=== PATIENT | male | born 1960 | race Caucasian/White ===

== ENCOUNTER 2018-10-28 00:24 | Inpatient (IN) ==
[2018-10-28] MEDS: DOBUTamine 500 MG/250 ML PREMIX IV PRN ×2 (01:50→14:38)
[2018-10-28] MEDS ORDERED: BISACODYL 5 MG TABLET PO PRN (02:48)
[2018-10-28] MEDS ORDERED: ACETAMINOPHEN 500 MG TABLET PO PRN (02:48)
[2018-10-28 06:00] LABS: Basophils % 0.5 % (0.0-0.8); Eosinophils # 0.1 10*3/uL (0.0-0.87); Eosinophils % 0.9 % (0.00-10.9); Hematocrit 30.3 VOL% (42.0-52.0); Hemoglobin 9.8 GM/DL (14.0-18.0); Immature Granulocytes % 0.5 %; Immature Granulocytes Absolute 0.04 #; Lymphocytes # 0.6 10*3/uL (1.4-4.0); Lymphocytes % 7.2 % (21.2-54.2); Mean Corpuscular HGB Conc 32.3 GM/DL (32-36); Mean Corpuscular Volume 93.5 FL (87-102); Mean Platelet Volume 10.9 FL (9.6-12.0); Monocytes % 7.9 % (1.7-12.7); Platelet Count 184 T/CUMM (130-400); Red Blood Count 3.24 MC/CUMM (3.8-5.5); Red Cell Distribution Width 14.3 % (9.3-17.3); White Blood Count 7.6 T/CUMM (4-12)
[2018-10-28 06:45] LABS: Albumin 2.9 G/DL (3.4-5.0); Calcium 8.4 MG/DL (8.5-10.1); Osmolality,Calculated 276.8 MOS/KG (273-304); Total Protein 7.3 G/DL (6.4-8.3)
[2018-10-28] MEDS: PANTOPRAZOLE 40 MG TABLET PO SCH (08:33)
[2018-10-28] MEDS: FERROUS SULFATE 325 MG TABLET PO SCH (08:33)
[2018-10-28] MEDS: ENOXAPARIN 30 MG/0.3 ML SYRINGE SUBCUT SCH (08:33)
[2018-10-28] MEDS: CALCIUM CARBONATE CHEW 500 MG TABLET PO SCH ×3 (08:40→17:18)
[2018-10-28] MEDS ORDERED: ASPIRIN EC 81 MG TABLET PO SCH (09:00)
[2018-10-28] MEDS ORDERED: traMADol 50 MG TABLET PO PRN (10:35)
[2018-10-28] MEDS: SODIUM CHLORIDE 0.9% 1,000 ML IV SCH (12:00)
[2018-10-28] MEDS ORDERED: POTASSIUM CHLORIDE RIDER 10 MEQ in PREMIX 1 EACH IV PRN (12:06)
[2018-10-28] MEDS ORDERED: MAGNESIUM SULF RIDER 2 GM in PREMIX 1 EACH IV PRN (12:06)
[2018-10-28] MEDS: ONDANSETRON 4 MG/2 ML VIAL IV PRN ×2 (13:38→22:59)
[2018-10-28] MEDS ORDERED: HYDROmorphone 2 MG/1 ML VIAL IV ONE (14:15)
[2018-10-28] MEDS ORDERED: AMIODARONE INJ 150 MG in DEXTROSE 5% 100 ML IV ONE (23:23)
[2018-10-28] MEDS ORDERED: AMIODARONE 150 MG/3 ML VIAL ONE (23:26)
[2018-10-28] MEDS ORDERED: SODIUM CHLORIDE 0.9% 1,000 ML IV SCH (23:30)
[2018-10-28] MEDS ORDERED: AMIODARONE INJ 450 MG in DEXTROSE 5% 241 ML IV SCH (23:30)
[2018-10-28] MEDS ORDERED: SODIUM CHLORIDE 0.9% 500 ML IV ONE (23:40)
[2018-10-28 23:49] LABS: ABG Base Excess -0.1 MMOL/L (-2.5-2.5); ABG HCO3 23.3 MMOL/L (20-26); ABG PCO2 45.1 MM HG (35-48); ABG TCO2 23.9 MMOL/L (23-27); Allen Test Positive
[2018-10-28 23:51] LABS: ABG PO2 21.1 MM HG (80-95)
[2018-10-29 00:15] LABS: ABG Base Excess -2.9 MMOL/L (-2.5-2.5); ABG HCO3 19.8 MMOL/L (20-26); ABG Oxygen Saturation 99.4 % (95-100); ABG PCO2 27.6 MM HG (35-48); ABG PH 7.474 (7.35-7.45); ABG TCO2 20.7 MMOL/L (23-27)
[2018-10-29] MEDS: CLORAZEPATE 3.75 MG TABLET PO PRN (01:53)
[2018-10-29] MEDS: SODIUM CHLORIDE 0.9% 1,000 ML IV SCH (02:30)
[2018-10-29 04:44] LABS: Basophils % 0.3 % (0.0-0.8); Hematocrit 30.3 VOL% (42.0-52.0); Hemoglobin 9.7 GM/DL (14.0-18.0); Immature Granulocytes % 0.6 %; Immature Granulocytes Absolute 0.05 #; Lymphocytes # 0.2 10*3/uL (1.4-4.0); Lymphocytes % 3.1 % (21.2-54.2); Mean Corpuscular Volume 94.4 FL (87-102); Mean Platelet Volume 11.5 FL (9.6-12.0); Monocytes % 5.6 % (1.7-12.7); Neutrophils % 90.4 % (38.7-73.9); Platelet Count 183 T/CUMM (130-400); Red Blood Count 3.21 MC/CUMM (3.8-5.5); Red Cell Distribution Width 14.5 % (9.3-17.3); White Blood Count 7.7 T/CUMM (4-12)
[2018-10-29 04:58] LABS: Calcium 8.5 MG/DL (8.5-10.1); Osmolality,Calculated 271.8 MOS/KG (273-304)
[2018-10-29 05:22] LABS: Lymphocytes 4 % (20-55); Platelet Estimate Adequate; Segmented Neutrophils 93 % (50-85); Total Cells Counted 100
[2018-10-29 05:23] LABS: Hypochromasia 1+
[2018-10-29] MEDS: ONDANSETRON 4 MG/2 ML VIAL IV PRN ×2 (07:07→20:42)
[2018-10-29] MEDS ORDERED: DIAZEPAM 5 MG TABLET PO ONE (08:30)
[2018-10-29] MEDS ORDERED: diphenhydrAMINE CAP 25 MG CAPSULE PO ONE (08:30)
[2018-10-29] MEDS ORDERED: AMIODARONE 450 MG/9 ML VIAL IV ONE (08:42)
[2018-10-29] MEDS ORDERED: LIDOCAINE 1% 20 ML VIAL ONE (08:45)
[2018-10-29] MEDS ORDERED: MIDAZOLAM 2 MG/2 ML VIAL ONE (09:01)
[2018-10-29] MEDS ORDERED: HEPARIN/NACL 0.9% 2 UNITS/ML 500 ML IV ONE (09:01)
[2018-10-29] MEDS ORDERED: HYDROmorphone 2 MG/1 ML VIAL ONE (09:01)
[2018-10-29] MEDS: ENOXAPARIN 30 MG/0.3 ML SYRINGE SUBCUT SCH (11:42)
[2018-10-29] MEDS: CALCIUM CARBONATE CHEW 500 MG TABLET PO SCH ×3 (12:43→17:55)
[2018-10-29] MEDS: LEVOTHYROXINE 50 MCG TABLET PO SCH (12:44)
[2018-10-29] MEDS: FERROUS SULFATE 325 MG TABLET PO SCH (12:44)
[2018-10-29] MEDS: PANTOPRAZOLE 40 MG TABLET PO SCH (12:44)
[2018-10-29] MEDS: HYDROmorphone 2 MG/1 ML VIAL IV PRN (20:40)
[2018-10-30 04:35] LABS: Basophils % 0.5 % (0.0-0.8); Eosinophils # 0.1 10*3/uL (0.0-0.87); Hematocrit 30.5 VOL% (42.0-52.0); Immature Granulocytes % 0.6 %; Immature Granulocytes Absolute 0.04 #; Lymphocytes # 0.5 10*3/uL (1.4-4.0); Lymphocytes % 7.8 % (21.2-54.2); Mean Corpuscular HGB Conc 32.8 GM/DL (32-36); Mean Corpuscular Volume 92.7 FL (87-102); Mean Platelet Volume 10.6 FL (9.6-12.0); Monocytes % 7.5 % (1.7-12.7); Neutrophils % 82.6 % (38.7-73.9); Platelet Count 187 T/CUMM (130-400); Red Blood Count 3.29 MC/CUMM (3.8-5.5); Red Cell Distribution Width 14.5 % (9.3-17.3); White Blood Count 6.2 T/CUMM (4-12)
[2018-10-30 05:00] LABS: Osmolality,Calculated 273.7 MOS/KG (273-304)
[2018-10-30 05:05] LABS: Albumin 2.4 G/DL (3.4-5.0); Bilirubin,Total 0.9 MG/DL (0.2-1.0); Calcium 8.1 MG/DL (8.5-10.1); Osmolality,Calculated 276.5 MOS/KG (273-304); Total Protein 6.1 G/DL (6.4-8.3)
[2018-10-30] MEDS: ENOXAPARIN 30 MG/0.3 ML SYRINGE SUBCUT SCH ×2 (08:09→09:50)
[2018-10-30] MEDS: CALCIUM CARBONATE CHEW 500 MG TABLET PO SCH ×3 (08:09→18:53)
[2018-10-30] MEDS: LEVOTHYROXINE 50 MCG TABLET PO SCH (08:09)
[2018-10-30] MEDS: CARVEDILOL 3.125 MG TABLET PO SCH ×2 (09:50→20:53)
[2018-10-30] MEDS: FERROUS SULFATE 325 MG TABLET PO SCH (09:50)
[2018-10-30] MEDS: PANTOPRAZOLE 40 MG TABLET PO SCH (09:50)
[2018-10-30] MEDS: HYDROmorphone 2 MG/1 ML VIAL IV PRN (20:04)
[2018-10-30] MEDS: CLORAZEPATE 3.75 MG TABLET PO PRN (20:53)
[2018-10-31] MEDS: HYDROmorphone 2 MG/1 ML VIAL IV PRN ×4 (02:07→20:13)
[2018-10-31 05:21] LABS: Basophils % 0.5 % (0.0-0.8); Eosinophils # 0.1 10*3/uL (0.0-0.87); Eosinophils % 1.8 % (0.00-10.9); Hematocrit 31.2 VOL% (42.0-52.0); Immature Granulocytes % 0.7 %; Immature Granulocytes Absolute 0.04 #; Lymphocytes # 0.4 10*3/uL (1.4-4.0); Mean Corpuscular HGB Conc 32.1 GM/DL (32-36); Mean Corpuscular Volume 93.1 FL (87-102); Mean Platelet Volume 9.9 FL (9.6-12.0); Monocytes % 8.5 % (1.7-12.7); Neutrophils % 80.5 % (38.7-73.9); Platelet Count 174 T/CUMM (130-400); Red Blood Count 3.35 MC/CUMM (3.8-5.5); Red Cell Distribution Width 14.4 % (9.3-17.3); White Blood Count 5.5 T/CUMM (4-12)
[2018-10-31 05:37] LABS: Calcium 7.9 MG/DL (8.5-10.1); Osmolality,Calculated 277.1 MOS/KG (273-304)
[2018-10-31] MEDS: LEVOTHYROXINE 50 MCG TABLET PO SCH (06:30)
[2018-10-31 07:37] LABS: Albumin 2.3 G/DL (3.4-5.0); Bilirubin,Direct 0.47 MG/DL (0.0-0.20); Bilirubin,Indirect 0.3 MG/DL (0.0-1.0); Bilirubin,Total 0.8 MG/DL (0.2-1.0)
[2018-10-31] MEDS: ENOXAPARIN 30 MG/0.3 ML SYRINGE SUBCUT SCH (08:17)
[2018-10-31] MEDS: CALCIUM CARBONATE CHEW 500 MG TABLET PO SCH ×3 (08:18→17:13)
[2018-10-31] MEDS: PANTOPRAZOLE 40 MG TABLET PO SCH (08:18)
[2018-10-31] MEDS: FERROUS SULFATE 325 MG TABLET PO SCH (08:18)
[2018-10-31] MEDS: CARVEDILOL 3.125 MG TABLET PO SCH ×2 (08:18→20:13)
[2018-10-31] MEDS: CLORAZEPATE 3.75 MG TABLET PO PRN (20:13)
[2018-11-01] MEDS: HYDROmorphone 2 MG/1 ML VIAL IV PRN ×4 (02:27→21:07)
[2018-11-01 05:08] LABS: Basophils % 0.7 % (0.0-0.8); Eosinophils # 0.2 10*3/uL (0.0-0.87); Eosinophils % 3.6 % (0.00-10.9); Hemoglobin 9.9 GM/DL (14.0-18.0); Immature Granulocytes % 0.9 %; Immature Granulocytes Absolute 0.04 #; Lymphocytes # 0.6 10*3/uL (1.4-4.0); Lymphocytes % 12.5 % (21.2-54.2); Mean Corpuscular HGB Conc 31.9 GM/DL (32-36); Mean Corpuscular Volume 93.7 FL (87-102); Mean Platelet Volume 9.9 FL (9.6-12.0); Neutrophils % 69.3 % (38.7-73.9); Platelet Count 170 T/CUMM (130-400); Red Blood Count 3.31 MC/CUMM (3.8-5.5); Red Cell Distribution Width 14.6 % (9.3-17.3); White Blood Count 4.4 T/CUMM (4-12)
[2018-11-01 05:55] LABS: Calcium 7.8 MG/DL (8.5-10.1); Osmolality,Calculated 274.5 MOS/KG (273-304)
[2018-11-01] MEDS: LEVOTHYROXINE 50 MCG TABLET PO SCH (06:10)
[2018-11-01] MEDS: CALCIUM CARBONATE CHEW 500 MG TABLET PO SCH ×3 (08:08→17:58)
[2018-11-01] MEDS: ENOXAPARIN 30 MG/0.3 ML SYRINGE SUBCUT SCH (08:09)
[2018-11-01] MEDS: PANTOPRAZOLE 40 MG TABLET PO SCH (12:59)
[2018-11-01] MEDS: CARVEDILOL 3.125 MG TABLET PO SCH ×2 (12:59→21:07)
[2018-11-01] MEDS: FERROUS SULFATE 325 MG TABLET PO SCH (12:59)
[2018-11-01 18:25] LABS: Apearance,Urine CLOUDY (Clear); Bacteria,Urine Occasional /HPF (Few); Bilirubin,Urine Negative (Negative); Blood, Urine Moderate mg/dL (Negative); Glucose,Urine (UA) Negative (Negative); Ketones,Urine Negative (Negative); Mucus,Urine Occasional /LPF (Occasional); Nitrite,Urine Negative (Negative); Protein,Urine 100 MG/DL; RBC,Urine 3 /HPF (0-4); Squamous Epithelial Cell,Urine Occasional /HPF (0-10); Urine Color Amber (Yellow); Urine Specific Gravity 1.017 (1.001-1.035); Urine Urobilinogen < 2.0 EU/DL (0.2-1.0); WBC,Urine 6 /HPF (0-6)
[2018-11-01] MEDS ORDERED: DILTIAZEM 25 MG/5 ML VIAL IV ONE (20:48)
[2018-11-01] MEDS ORDERED: SODIUM CHLORIDE 0.9% 500 ML IV ONE (20:50)
[2018-11-01] MEDS: CLORAZEPATE 3.75 MG TABLET PO PRN (21:07)
[2018-11-01] MEDS: dilTIAZem Drip 125 MG/125 ML PREMIX IV SCH (21:22)
[2018-11-02] MEDS: HYDROmorphone 2 MG/1 ML VIAL IV PRN ×3 (04:58→21:10)
[2018-11-02 05:02] LABS: Basophils % 1.1 % (0.0-0.8); Eosinophils # 0.2 10*3/uL (0.0-0.87); Eosinophils % 4.2 % (0.00-10.9); Hematocrit 28.8 VOL% (42.0-52.0); Hemoglobin 9.4 GM/DL (14.0-18.0); Immature Granulocytes % 0.6 %; Immature Granulocytes Absolute 0.02 #; Lymphocytes # 0.4 10*3/uL (1.4-4.0); Lymphocytes % 11.7 % (21.2-54.2); Mean Corpuscular HGB Conc 32.6 GM/DL (32-36); Mean Corpuscular Volume 92.9 FL (87-102); Mean Platelet Volume 9.9 FL (9.6-12.0); Monocytes % 18.6 % (1.7-12.7); Neutrophils % 63.8 % (38.7-73.9); Platelet Count 151 T/CUMM (130-400); Red Cell Distribution Width 14.8 % (9.3-17.3); White Blood Count 3.6 T/CUMM (4-12)
[2018-11-02 05:05] LABS: Calcium 7.5 MG/DL (8.5-10.1); Osmolality,Calculated 281.1 MOS/KG (273-304)
[2018-11-02 05:39] LABS: Band Neutrophils 4 % (0-10); Eosinophils 3 % (0-10); Hypochromasia 2+; Lymphocytes 11 % (20-55); Platelet Estimate Adequate; Segmented Neutrophils 62 % (50-85); Total Cells Counted 100
[2018-11-02] MEDS: LEVOTHYROXINE 50 MCG TABLET PO SCH (06:25)
[2018-11-02] MEDS: ENOXAPARIN 30 MG/0.3 ML SYRINGE SUBCUT SCH (08:17)
[2018-11-02] MEDS: CARVEDILOL 3.125 MG TABLET PO SCH ×3 (08:17→21:09)
[2018-11-02] MEDS: CALCIUM CARBONATE CHEW 500 MG TABLET PO SCH ×3 (08:17→17:39)
[2018-11-02] MEDS: FERROUS SULFATE 325 MG TABLET PO SCH (08:17)
[2018-11-02] MEDS: PANTOPRAZOLE 40 MG TABLET PO SCH (08:17)
[2018-11-02] MEDS: DILTIAZEM CD 120 MG CAPSULE PO SCH (10:17)
[2018-11-02] MEDS: APIXABAN 2.5 MG TABLET PO SCH ×2 (10:17→21:09)
[2018-11-02] MEDS: dilTIAZem Drip 125 MG/125 ML PREMIX IV SCH (21:03)
[2018-11-02] MEDS: CLORAZEPATE 3.75 MG TABLET PO PRN (21:10)
[2018-11-03 05:50] LABS: Basophils % 0.7 % (0.0-0.8); Eosinophils # 0.2 10*3/uL (0.0-0.87); Eosinophils % 6.6 % (0.00-10.9); Hematocrit 28.8 VOL% (42.0-52.0); Hemoglobin 9.5 GM/DL (14.0-18.0); Immature Granulocytes % 0.3 %; Immature Granulocytes Absolute 0.01 #; Lymphocytes # 0.6 10*3/uL (1.4-4.0); Lymphocytes % 19.3 % (21.2-54.2); Mean Platelet Volume 9.7 FL (9.6-12.0); Monocytes % 16.4 % (1.7-12.7); Neutrophils % 56.7 % (38.7-73.9); Platelet Count 136 T/CUMM (130-400); Red Blood Count 3.13 MC/CUMM (3.8-5.5); Red Cell Distribution Width 14.8 % (9.3-17.3); White Blood Count 3.1 T/CUMM (4-12)
[2018-11-03 06:06] LABS: Calcium 7.7 MG/DL (8.5-10.1); Osmolality,Calculated 274.5 MOS/KG (273-304)
[2018-11-03 06:22] LABS: Eosinophils 6 % (0-10); Hypochromasia 1+; Lymphocytes 16 % (20-55); Microcytosis Slight; Segmented Neutrophils 68 % (50-85); Total Cells Counted 100
[2018-11-03 06:23] LABS: Platelet Estimate Adequate
[2018-11-03] MEDS: LEVOTHYROXINE 50 MCG TABLET PO SCH (06:51)
[2018-11-03] MEDS: HYDROmorphone 2 MG/1 ML VIAL IV PRN (08:11)
[2018-11-03] MEDS: CARVEDILOL 3.125 MG TABLET PO SCH (08:14)
[2018-11-03] MEDS: DILTIAZEM CD 120 MG CAPSULE PO SCH (08:14)
[2018-11-03] MEDS: CALCIUM CARBONATE CHEW 500 MG TABLET PO SCH ×2 (08:14→12:08)
[2018-11-03] MEDS: PANTOPRAZOLE 40 MG TABLET PO SCH (08:15)
[2018-11-03] MEDS: FERROUS SULFATE 325 MG TABLET PO SCH (08:15)
[2018-11-03] MEDS: APIXABAN 2.5 MG TABLET PO SCH (08:15)
[2018-11-03 11:33] VITALS: BP 107/56
[2018-11-03] MEDS ORDERED: DILTIAZEM CD 120 MG CAPSULE PO SCH (21:00)
== END 2018-11-03 14:34 | disposition home or self-care (01) | DRG 314 ==
LOC: N.CC 02:24 → SUATTDRO 02:48 → N.TELEN 10-30 14:06
PROVIDERS: ADMIT Internal Medicine; ATTEND Internal Medicine

== ENCOUNTER 2020-02-18 19:40 | Observation (INO) ==
[2020-02-18] MEDS ORDERED: MORPHINE 4 MG/1 ML VIAL IV STA (21:16)
[2020-02-18] MEDS ORDERED: ONDANSETRON 4 MG/2 ML VIAL IV ONE (21:16)
[2020-02-18 21:53] LABS: Albumin 2.8 G/DL (3.4-5.0); Bilirubin,Total 1.1 MG/DL (0.2-1.0); Calcium 8.5 MG/DL (8.5-10.1); Osmolality,Calculated 272.1 MOS/KG (273-304); Total Protein 7.2 G/DL (6.4-8.3)
[2020-02-18 22:17] LABS: Basophils # 0.1 10*3/uL (0.0-0.2); Basophils % 0.7 % (0.0-0.8); Eosinophils # 0.1 10*3/uL (0.0-0.87); Hematocrit 29.6 VOL% (42.0-52.0); Immature Granulocytes % 0.7 %; Immature Granulocytes Absolute 0.05 #; Lymphocytes # 0.4 10*3/uL (1.4-4.0); Lymphocytes % 6.1 % (21.2-54.2); Mean Corpuscular HGB Conc 33.8 GM/DL (32-36); Mean Corpuscular Volume 94.6 FL (87-102); Mean Platelet Volume 9.8 FL (9.6-12.0); Monocytes % 7.4 % (1.7-12.7); Neutrophils % 84.1 % (38.7-73.9); Platelet Count 163 T/CUMM (130-400); Red Blood Count 3.13 MC/CUMM (3.8-5.5); Red Cell Distribution Width 15.9 % (9.3-17.3)
[2020-02-18] MEDS ORDERED: hydrALAZINE 20 MG/1 ML VIAL IV PRN (22:18)
[2020-02-18] MEDS ORDERED: DOCUSATE SODIUM 100 MG CAPSULE PO PRN (22:18)
[2020-02-18] MEDS ORDERED: ZALEPLON 5 MG CAPSULE PO PRN (22:18)
[2020-02-18] MEDS ORDERED: DEXTROSE 50% 25 GM/50 ML VIAL IV PRN ×2 (22:18)
[2020-02-18] MEDS ORDERED: guaiFENesin/DM ER 600-30 MG TABLET PO PRN (22:18)
[2020-02-18] MEDS ORDERED: NICOTINE 21 MG/24 HR PATCH TRANSDERM PRN (22:18)
[2020-02-18] MEDS ORDERED: diphenhydrAMINE CAP 25 MG CAPSULE PO PRN (22:18)
[2020-02-18] MEDS ORDERED: GLUCAGON 1 MG VIAL IM PRN ×2 (22:18)
[2020-02-18] MEDS ORDERED: ONDANSETRON 4 MG/2 ML VIAL IV PRN (22:18)
[2020-02-19] MEDS: MORPHINE 4 MG/1 ML VIAL IV PRN ×3 (03:42→22:16)
[2020-02-19 04:47] LABS: Basophils # 0.1 10*3/uL (0.0-0.2); Basophils % 0.7 % (0.0-0.8); Eosinophils # 0.2 10*3/uL (0.0-0.87); Eosinophils % 1.9 % (0.00-10.9); Hematocrit 31.3 VOL% (42.0-52.0); Hemoglobin 10.3 GM/DL (14.0-18.0); Immature Granulocytes % 0.5 %; Immature Granulocytes Absolute 0.04 #; Lymphocytes # 0.5 10*3/uL (1.4-4.0); Lymphocytes % 6.1 % (21.2-54.2); Mean Corpuscular HGB Conc 32.9 GM/DL (32-36); Mean Corpuscular Volume 94.8 FL (87-102); Mean Platelet Volume 9.4 FL (9.6-12.0); Monocytes % 8.1 % (1.7-12.7); Neutrophils % 82.7 % (38.7-73.9); Platelet Count 181 T/CUMM (130-400); Red Cell Distribution Width 15.9 % (9.3-17.3)
[2020-02-19 05:04] LABS: Calcium 8.5 MG/DL (8.5-10.1); Osmolality,Calculated 276.8 MOS/KG (273-304)
[2020-02-19] MEDS ORDERED: LEVOTHYROXINE 75 MCG TABLET PO SCH (06:30)
[2020-02-19] MEDS ORDERED: PANTOPRAZOLE 40 MG TABLET PO SCH (09:00)
[2020-02-19 09:08] LABS: INR 1.1; PT Patient Result 11.7 SECS (9.8-11.9)
[2020-02-19] MEDS: INSULIN LISPRO 100 UNIT/ML SUBCUT SCH ×4 (09:20→20:41)
[2020-02-19] MEDS: carvediloL 12.5 MG TABLET PO SCH ×2 (09:36→18:12)
[2020-02-19] MEDS: AMIODARONE 200 MG TABLET PO SCH (09:36)
[2020-02-19] MEDS: ISOSORBIDE MONONITRATE 30 MG TABLET PO SCH (09:37)
[2020-02-19] MEDS: HEPARIN 5,000 UNIT/1 ML VIAL SUBCUT SCH ×2 (09:37→20:40)
[2020-02-19] MEDS: hydrALAZINE 10 MG TABLET PO SCH ×3 (09:37→20:40)
[2020-02-19 14:54] LABS: Neutrophils,Peritoneal Fluid 21 %; RBC,Peritoneal Fluid 634 T/CUMM
[2020-02-19] MEDS ORDERED: KETOROLAC 30 MG/1 ML VIAL IV ONE ×2 (18:00→21:00)
[2020-02-19] MEDS ORDERED: DEXAMETHASONE 4 MG/1 ML VIAL IV ONE ×2 (18:00→21:00)
[2020-02-19 19:18] LABS: Hepatitis B Core IgM Quant 0.09 Index; Hepatitis B Surface Ag Quant < 0.10 Index; Hepatitis B Surface Ag Result Negative (Negative); Hepatitis C Virus Ab Quant 0.19 Index; Hepatitis C Virus Ab Result Negative (Negative)
[2020-02-20] MEDS ORDERED: LEVOTHYROXINE 88 MCG TABLET PO SCH (06:30)
[2020-02-20] MEDS: HEPARIN 5,000 UNIT/1 ML VIAL SUBCUT SCH (08:36)
[2020-02-20] MEDS: carvediloL 12.5 MG TABLET PO SCH ×2 (08:38→17:38)
[2020-02-20] MEDS: AMIODARONE 200 MG TABLET PO SCH (08:39)
[2020-02-20] MEDS: ISOSORBIDE MONONITRATE 30 MG TABLET PO SCH (08:39)
[2020-02-20] MEDS: INSULIN LISPRO 100 UNIT/ML SUBCUT SCH ×3 (08:39→17:38)
[2020-02-20] MEDS: hydrALAZINE 10 MG TABLET PO SCH ×2 (08:39→16:00)
[2020-02-20] MEDS: MORPHINE 4 MG/1 ML VIAL IV PRN ×2 (09:57→18:30)
[2020-02-20 11:58] VITALS: BP 128/53
== END 2020-02-20 19:47 | disposition home or self-care (01) ==
LOC: EDUNIT# → N.EDINP 19:40 → N.ED 19:40 → SUATTDRO 22:18 → N.EDINP 02-19 03:17 → N.5E 02-19 03:22
PROVIDERS: ADMIT Internal Medicine; ATTEND Emergency Medicine

== ENCOUNTER 2020-02-23 09:36 | Observation (INO) ==
[2020-02-23] MEDS ORDERED: ONDANSETRON 4 MG/2 ML VIAL IV ONE (10:01)
[2020-02-23] MEDS ORDERED: HYDROmorphone 2 MG/1 ML VIAL IV STA (10:01)
[2020-02-23 11:44] LABS: Basophils # 0.1 10*3/uL (0.0-0.2); Basophils % 0.5 % (0.0-0.8); Eosinophils # 0.2 10*3/uL (0.0-0.87); Hematocrit 29.3 VOL% (42.0-52.0); Hemoglobin 9.9 GM/DL (14.0-18.0); Immature Granulocytes % 0.5 %; Immature Granulocytes Absolute 0.05 #; Lymphocytes # 0.5 10*3/uL (1.4-4.0); Lymphocytes % 5.3 % (21.2-54.2); Mean Corpuscular HGB Conc 33.8 GM/DL (32-36); Mean Corpuscular Volume 94.5 FL (87-102); Mean Platelet Volume 9.5 FL (9.6-12.0); Monocytes % 7.1 % (1.7-12.7); Neutrophils % 84.6 % (38.7-73.9); Platelet Count 148 T/CUMM (130-400); Red Cell Distribution Width 15.9 % (9.3-17.3); White Blood Count 9.7 T/CUMM (4-12)
[2020-02-23 12:07] LABS: Albumin 2.7 G/DL (3.4-5.0); Calcium 7.8 MG/DL (8.5-10.1); Osmolality,Calculated 278.1 MOS/KG (273-304)
[2020-02-23] MEDS ORDERED: GLUCAGON 1 MG VIAL IM PRN (13:55)
[2020-02-23] MEDS ORDERED: DEXTROSE 50% 25 GM/50 ML VIAL IV PRN (13:55)
[2020-02-23] MEDS ORDERED: DOCUSATE SODIUM 100 MG CAPSULE PO PRN (14:03)
[2020-02-23] MEDS ORDERED: LACTULOSE 20 GM/30 ML UDCUP PO PRN (14:03)
[2020-02-23] MEDS ORDERED: PROMETHAZINE 25 MG/1 ML VIAL IM PRN (14:03)
[2020-02-23] MEDS ORDERED: ONDANSETRON 4 MG/2 ML VIAL IV PRN (14:03)
[2020-02-23] MEDS: INSULIN LISPRO 100 UNIT/ML SUBCUT SCH ×2 (17:00→21:11)
[2020-02-23] MEDS: MORPHINE 4 MG/1 ML VIAL IV PRN (23:04)
[2020-02-24] MEDS: MORPHINE 4 MG/1 ML VIAL IV PRN ×3 (02:39→14:26)
[2020-02-24 05:04] LABS: Basophils # 0.1 10*3/uL (0.0-0.2); Basophils % 0.6 % (0.0-0.8); Eosinophils # 0.2 10*3/uL (0.0-0.87); Eosinophils % 2.3 % (0.00-10.9); Hematocrit 30.9 VOL% (42.0-52.0); Hemoglobin 10.2 GM/DL (14.0-18.0); Immature Granulocytes % 0.4 %; Immature Granulocytes Absolute 0.04 #; Lymphocytes # 0.3 10*3/uL (1.4-4.0); Lymphocytes % 3.6 % (21.2-54.2); Mean Corpuscular Volume 95.4 FL (87-102); Mean Platelet Volume 9.7 FL (9.6-12.0); Monocytes % 7.2 % (1.7-12.7); Neutrophils % 85.9 % (38.7-73.9); Platelet Count 163 T/CUMM (130-400); Red Blood Count 3.24 MC/CUMM (3.8-5.5); Red Cell Distribution Width 15.7 % (9.3-17.3); White Blood Count 9.5 T/CUMM (4-12)
[2020-02-24 05:27] LABS: Hypochromasia 1+; Lymphocytes 2 % (20-55); Microcytosis Slight; Platelet Estimate Adequate; Segmented Neutrophils 94 % (50-85); Total Cells Counted 100
[2020-02-24 05:38] LABS: Albumin 2.7 G/DL (3.4-5.0); Bilirubin,Total 1.4 MG/DL (0.2-1.0); Calcium 8.4 MG/DL (8.5-10.1); Osmolality,Calculated 274.7 MOS/KG (273-304); Thyroid Stimulating Hormone 2.83 uIU/ml (0.358-3.74); Total Protein 7.1 G/DL (6.4-8.3)
[2020-02-24] MEDS: INSULIN LISPRO 100 UNIT/ML SUBCUT SCH ×2 (09:35→12:34)
[2020-02-24 11:39] VITALS: BP 112/54
[2020-02-24] MEDS ORDERED: CIPROFLOXACIN 500 MG TABLET PO SCH (21:00)
== END 2020-02-24 15:59 | disposition home or self-care (01) ==
LOC: EDUNIT# → EDBD → N.EDINP 09:36 → N.ED 09:36 → N.5E 15:55
PROVIDERS: ADMIT Family Medicine; ATTEND Family Medicine